=== PATIENT | male | born 1945 | race Caucasian/White ===

== ENCOUNTER 2017-10-09 17:30 | Inpatient (IN) | payer OTHER ==
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
[2017-10-09] MEDS ORDERED: SODIUM CHLORIDE 1,000 ML IV STA (18:35)
[2017-10-09 18:59] LABS: PH,URINE 5.5 (4.5-8); URINE APPEARANCE Clear; URINE BILIRUBIN Negative (NEGATIVE); URINE GLUCOSE (UA) 1+ (NEGATIVE); URINE KETONE 1+ (NEGATIVE); URINE NITRITE Positive (NEGATIVE); URINE UROBILINOGEN 0.2 (0.2-1.0)
[2017-10-09 19:00] LABS: URINE COLOR YELLOW; URINE LEUK ESTERASE 2+ (NEGATIVE); URINE PROTEIN 2+ (NEGATIVE)
[2017-10-09 19:03] LABS: BASO % 0.8 % (0-2.0); EOS % 0.3 % (0-4.5); HEMATOCRIT 35.4 % (35.4-49); HEMOGLOBIN 12.1 GM/dl (11.7-16.9); LYMPH % 9.5 % (8-40); MCH 30.3 pg (25.7-33.7); MCHC 34.2 g/dl (32.0-35.9); MEAN CELL VOLUME 88.6 fl (80-96); MEAN PLT VOLUME 9.9 fl (7.5-11.1); MONO % 13.5 % (3.8-10.2); NEUT % 75.9 % (42.8-82.8); PLATELET COUNT 149 K/MM3 (134-434); RDW 12.8 % (11.9-15.9); WHITE BLOOD COUNT 8.1 K/mm3 (4.0-10.8)
[2017-10-09 19:16] LABS: ALBUMIN 3.5 g/dl (3.5-5.0); ALK PHOS 70 U/L (32-92); ANION GAP 9 (8-16); BILIRUBIN,TOTAL 0.8 mg/dl (0.2-1.0); BLOOD UREA NITROGEN 26 mg/dl (7-18); CHLORIDE 99 mmol/L (98-107); CO2 23 mmol/L (22-28); CREATININE 1.2 mg/dl (0.6-1.3); GLUCOSE,RANDOM 247 mg/dl (74-106); POTASSIUM 4.2 mmol/L (3.5-5.1); SGOT/AST 17 U/L (10-42); SGPT/ALT 14 U/L (10-40); SODIUM 131 mmol/L (136-145)
[2017-10-09 19:59] LABS: URINE WBC MANY (0-2)
[2017-10-09 20:00] LABS: URINE BACTERIA MANY /hpf (NEGATIVE)
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
[2017-10-09] MEDS ORDERED: ACETAMINOPHEN 325 MG TABLET (FP) PO PRN (21:41)
[2017-10-09] MEDS: SODIUM CHLORIDE 1,000 ML IV SCH (21:52)
[2017-10-09] MEDS ORDERED: INSULIN SLIDING SCALE (NOVOLOG) 1 VIAL SQ SCH (22:00)
[2017-10-09] MEDS ORDERED: DOCUSATE SODIUM 100 MG CAPSULE (FP) PO ONE (22:41)
[2017-10-09] MEDS ORDERED: HEMOQUE TEST 1 EACH EACH ONE (22:41)
[2017-10-09] MEDS: INSULIN SLIDING SCALE (NOVOLOG) 1 VIAL SQ SCH (22:46)
[2017-10-09] MEDS ORDERED: INSULIN REGULAR HUMAN 100 UNITS/ML *VIAL ONE (22:50)
[2017-10-10] MEDS ORDERED: INSULIN SLIDING SCALE (NOVOLOG) 1 VIAL SQ SCH (07:00)
[2017-10-10 07:16] LABS: BASO % 0.7 % (0-2.0)
[2017-10-10 07:25] LABS: EOS % 0.7 % (0-4.5); HEMATOCRIT 31.9 % (35.4-49); HEMOGLOBIN 10.8 GM/dl (11.7-16.9); LYMPH % 10.7 % (8-40); MCH 30.4 pg (25.7-33.7); MEAN CELL VOLUME 89.3 fl (80-96); MONO % 10.7 % (3.8-10.2); NEUT % 77.2 % (42.8-82.8); RBC 3.57 M/mm3 (4.00-5.60); WHITE BLOOD COUNT 7.3 K/mm3 (4.0-10.8)
[2017-10-10 07:30] LABS: INR 1.31 (0.82-1.09); PROTHROMBIN TIME (PATIENT) 14.6 SEC (10.2-13.0)
[2017-10-10 07:42] LABS: ALBUMIN 2.9 g/dl (3.5-5.0); ALK PHOS 66 U/L (32-92); ANION GAP 9 (8-16); BILIRUBIN,TOTAL 1.1 mg/dl (0.2-1.0); BLOOD UREA NITROGEN 19 mg/dl (7-18); CALCIUM 8.1 mg/dl (8.4-10.2); CHLORIDE 101 mmol/L (98-107); CO2 22 mmol/L (22-28); MAGNESIUM 1.3 mg/dL (1.8-2.4); PHOSPHOROUS 2.9 mg/dl (2.5-4.6); POTASSIUM 4.9 mmol/L (3.5-5.1); SGOT/AST 21 U/L (10-42); SGPT/ALT 15 U/L (10-40); SODIUM 132 mmol/L (136-145); TOT PROT 5.9 g/dl (6.4-8.3)
[2017-10-10 07:45] LABS: GLUCOSE,RANDOM 320 mg/dl (74-106)
[2017-10-10] MEDS: INSULIN SLIDING SCALE (NOVOLOG) 1 VIAL SQ SCH ×4 (07:53→21:19)
[2017-10-10] MEDS ORDERED: INSULIN (NOVOLOG) ASPART 100 UNITS/ML 10ML VIAL ONE (08:02)
--- NOTE | 2017-10-10 08:57 | PN ---
Physical Exam: SUBJECTIVE: Patient seen and examined,denies any chest pain or shortness of breath. OBJECTIVE: Vital Signs Period Temp Pulse Resp BP Sys/Cadet Pulse Ox Last 24 Hr 98.7 F-101.7 F 75-86 16-20 132-148/63-78 96-97 GENERAL: The patient is awake, alert, and fully oriented, in no acute distress. HEAD: Normal with no signs of trauma. EYES: PERRL, extraocular movements intact, sclera anicteric, conjunctiva clear. No ptosis. ENT: Ears normal, nares patent, oropharynx clear without exudates, moist mucous membranes. NECK: Trachea midline, full range of motion, supple. LUNGS: Breath sounds equal, clear to auscultation bilaterally, no wheezes, no crackles, no accessory muscle use. HEART: Regular rate and rhythm, S1, S2 without murmur, rub or gallop. ABDOMEN: Soft, nontender, nondistended, normoactive bowel sounds, no guarding, no rebound, no hepatosplenomegaly, no masses. :rollins cloudy colored urine EXTREMITIES: 2+ pulses, warm, well-perfused, no edema. NEUROLOGICAL: Cranial nerves II through XII grossly intact. Normal speech, gait not observed. PSYCH: Normal mood, normal affect. SKIN: Warm, dry, normal turgor, no rashes or lesions noted Laboratory Results - last 24 hr 10/09/17 10/09/17 10/09/17 18:53 18:53 18:53 WBC 8.1 RBC 4.00 Hgb 12.1 Hct 35.4 MCV 88.6 MCH 30.3 MCHC 34.2 RDW 12.8 Plt Count 149 MPV 9.9 Neutrophils % 75.9 Lymphocytes % 9.5 Monocytes % 13.5 H Eosinophils % 0.3 Basophils % 0.8 PT with INR INR Sodium 131 L Potassium 4.2 Chloride 99 Carbon Dioxide 23 Anion Gap 9 BUN 26 H Creatinine 1.2 Creat Clearance w eGFR 59.51 POC Glucometer Random Glucose 247 H Lactic Acid Calcium 9.0 Phosphorus Magnesium Total Bilirubin 0.8 AST 17 ALT 14 Alkaline Phosphatase 70 Creatine Kinase 71 Troponin I < 0.03 Total Protein 7.0 Albumin 3.5 Urine Color Urine Appearance Urine pH Ur Specific [place] Urine Protein Urine Glucose (UA) Urine Ketones Urine Blood Urine Nitrite Urine Bilirubin Urine Urobilinogen Ur Leukocyte Esterase Urine RBC Urine WBC Urine Bacteria 10/09/17 10/09/17 10/09/17 18:53 18:53 22:45 WBC RBC Hgb Hct MCV MCH MCHC RDW Plt Count MPV Neutrophils % Lymphocytes % Monocytes % Eosinophils % Basophils % PT with INR INR Sodium Potassium Chloride Carbon Dioxide Anion Gap BUN Creatinine Creat Clearance w eGFR POC Glucometer [phone] Random Glucose Lactic Acid 1.3 Calcium Phosphorus Magnesium Total Bilirubin AST ALT Alkaline Phosphatase Creatine Kinase Troponin I Total Protein Albumin Urine Color Yellow Urine Appearance Clear Urine pH 5.5 Ur Specific [place] 1.020 Urine Protein 2+ H Urine Glucose (UA) 1+ H Urine Ketones 1+ H Urine Blood 1+ H Urine Nitrite Positive Urine Bilirubin Negative Urine Urobilinogen 0.2 Ur Leukocyte Esterase 2+ H Urine RBC 5-10 Urine WBC Many Urine Bacteria Many 10/10/17 10/10/17 10/10/17 06:00 06:00 06:00 WBC 7.3 RBC 3.57 L Hgb 10.8 L D Hct 31.9 L MCV 89.3 MCH 30.4 MCHC 34.0 RDW 13.0 Plt Count MPV Neutrophils % 77.2 Lymphocytes % 10.7 Monocytes % 10.7 H Eosinophils % 0.7 D Basophils % 0.7 PT with INR 14.6 H INR 1.31 H Sodium 132 L Potassium 4.9 Chloride 101 Carbon Dioxide 22 Anion Gap 9 BUN 19 H D Creatinine 1.0 Creat Clearance w eGFR > 60 POC Glucometer Random Glucose 320 H* D Lactic Acid Calcium 8.1 L Phosphorus 2.9 Magnesium 1.3 L Total Bilirubin 1.1 H D AST 21 D ALT 15 Alkaline Phosphatase 66 Creatine Kinase Troponin I Total Protein 5.9 L Albumin 2.9 L Urine Color Urine Appearance Urine pH Ur Specific [place] Urine Protein Urine Glucose (UA) Urine Ketones Urine Blood Urine Nitrite Urine Bilirubin Urine Urobilinogen Ur Leukocyte Esterase Urine RBC Urine WBC Urine Bacteria 10/10/17 06:00 WBC RBC Hgb Hct MCV MCH MCHC RDW Plt Count MPV Neutrophils % Lymphocytes % Monocytes % Eosinophils % Basophils % PT with INR INR Sodium Potassium Chloride Carbon Dioxide Anion Gap BUN Creatinine Creat Clearance w eGFR POC Glucometer Random Glucose Lactic Acid Calcium Phosphorus Magnesium Total Bilirubin AST ALT Alkaline Phosphatase Creatine Kinase Troponin I < 0.03 Total Protein Albumin Urine Color Urine Appearance Urine pH Ur Specific [place] Urine Protein Urine Glucose (UA) Urine Ketones Urine Blood Urine Nitrite Urine Bilirubin Urine Urobilinogen Ur Leukocyte Esterase Urine RBC Urine WBC Urine Bacteria Active Medications Generic Name Dose Route Start Last Admin Trade Name Nathan PRN Reason Stop Dose Admin Acetaminophen 650 mg 10/09/17 21:41 Tylenol - PO Q4H PRN PAIN LEVEL 1-5 Aspirin 81 mg 10/10/17 10:00 Ecotrin - PO DAILY [facility] Clopidogrel Bisulfate 75 mg 10/10/17 10:00 Plavix - PO DAILY [facility] Docusate Sodium 100 mg 10/09/17 22:00 Colace - PO BID ENOC Sodium Chloride 1,000 mls @ 100 mls/hr 10/09/17 21:45 10/09/17 21:52 Normal Saline - IV 100 mls/hr ASDIR ENOC Administration Magnesium Sulfate 2 gm/ Sodium 104 mls @ 100 mls/hr 10/10/17 08:56 Chloride IVPB 10/10/17 09:58 ONCE ONE Insulin Aspart 1 vial 10/10/17 07:00 10/10/17 07:53 Novolog Vial Sliding Scale - SQ 8 units TIDAC [facility] Administration Protocol Insulin Aspart 1 vial 10/09/17 22:15 10/09/17 22:46 Novolog Vial Sliding Scale - SQ 4 units HS [facility] Administration Protocol Metoprolol Succinate 25 mg 10/10/17 10:00 Toprol Xl - PO DAILY [facility] Midodrine 2.5 mg 10/10/17 10:00 Proamatine - PO BID-MID [facility] patient is 72 y/o male, admitted from the ED for uti and metabolic encephalopathy ASSESSMENT/PLAN: 1) uti - pending culture, pending CT of abd/pelvis - continue rocephin urinary retention - continue rollins 2) neuro metabolic encephalopathy secondary to uti - fall precautions 3) cardiovascular afib - continous cardiac monitoiring, pt in nsr with pac's - no AC as per patient - implantable loop recorder noted on exam and as per patient, will contact [employer] for interrogation orthostatic hypotension - continue midodrine, allow for permissive hypertension 4) endo iddm - off insulin pump, fingersticks achs with regular insulin sliding scale - pending hgb a1c f/e/n replete magnesium low sodium diet ppx - oob - pt eval - scd dispo: pt requires inpatient admission Visit type - Emergency Visit Emergency Visit: Yes ED Registration Date: 10/09/17 Care time: The patient presented to the Emergency Department on the above date and was hospitalized for further evaluation of their emergent condition. - New Patient This patient is new to me today: No - Critical Care Critical Care patient: No - Discharge Referral Referred to [facility] No
[2017-10-10] MEDS ORDERED: MAGNESIUM SULF 50% (8.12 MEQ/2 ML-1 GM VIAL) ONE (09:14)
[2017-10-10] MEDS ORDERED: MAGNESIUM SULFATE IN WATER 2 GM/50 ML IVPB IVPB ONE (09:15)
[2017-10-10] MEDS: metoPROLOL SUCCINATE 25 MG TAB.SR.24H (FP) PO SCH (10:24)
[2017-10-10] MEDS: CLOPIDOGREL BISULFATE 75 MG TABLET (FP) PO SCH (10:24)
[2017-10-10] MEDS: MIDODRINE HCL 2.5 MG TABLET PO SCH ×2 (10:25→17:45)
[2017-10-10] MEDS: DOCUSATE SODIUM 100 MG CAPSULE (FP) PO SCH ×2 (10:25→21:19)
[2017-10-10] MEDS: ASPIRIN COATED 81 MG TABLET.EC PO SCH (10:25)
[2017-10-10 10:48] LABS: MEAN PLT VOLUME 11.1 fl (7.5-11.1); PLATELET COUNT 133 K/MM3 (134-434)
[2017-10-10 12:15] VITALS: BMI 24.0
--- NOTE | 2017-10-10 12:59 | EKG ---
Test Reason : Blood Pressure : / mmHG Vent. Rate : 077 BPM Atrial Rate : 077 BPM P-R Int : 180 ms QRS Dur : 080 ms QT Int : 384 ms P-R-T Axes : 065 021 054 degrees QTc Int : 434 ms SINUS RHYTHM WITH PREMATURE ATRIAL COMPLEXES NONSPECIFIC ST ABNORMALITY ABNORMAL ECG NO PREVIOUS ECGS AVAILABLE Confirmed by FERNANDEZ MONTEMAYOR, JUSTIN ([id number]) on 10/10/2017 12:59:38 PM Referred By: MD CHRISTOPHER Confirmed By:JUSTIN PRESLEY MD
[2017-10-10] MEDS ORDERED: CEFTRIAXONE 2 GM in DEXTROSE 5%-WATER - 100 ML IVPB ONE (15:00)
[2017-10-10] MEDS: SODIUM CHLORIDE 1,000 ML IV SCH (21:22)
[2017-10-10] MEDS: INSULIN (LEVEMIR) 100 UNITS/ML UNITS SQ SCH (22:12)
[2017-10-10] MEDS: ATORVASTATIN CA 40 MG TABLET (FP) PO SCH (22:14)
[2017-10-11] MEDS: INSULIN SLIDING SCALE (NOVOLOG) 1 VIAL SQ SCH ×4 (06:49→21:33)
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
[2017-10-11] MEDS: DOCUSATE SODIUM 100 MG CAPSULE (FP) PO SCH ×3 (10:03→21:33)
[2017-10-11] MEDS: CLOPIDOGREL BISULFATE 75 MG TABLET (FP) PO SCH (10:04)
[2017-10-11] MEDS: MIDODRINE HCL 2.5 MG TABLET PO SCH ×2 (10:04→17:21)
[2017-10-11] MEDS: metoPROLOL SUCCINATE 25 MG TAB.SR.24H (FP) PO SCH (10:04)
[2017-10-11] MEDS: ASPIRIN COATED 81 MG TABLET.EC PO SCH (10:04)
[2017-10-11] MEDS: INSULIN (LEVEMIR) 100 UNITS/ML UNITS SQ SCH ×2 (10:04→21:36)
[2017-10-11 13:30] LABS: BASO % 0.6 % (0-2.0); HEMATOCRIT 33.3 % (35.4-49); HEMOGLOBIN 11.3 GM/dl (11.7-16.9); LYMPH % 14.3 % (8-40); MCH 30.5 pg (25.7-33.7); MEAN CELL VOLUME 89.9 fl (80-96); MONO % 13.3 % (3.8-10.2); NEUT % 68.8 % (42.8-82.8); PLATELET COUNT 131 K/MM3 (134-434); RDW 12.6 % (11.9-15.9); WHITE BLOOD COUNT 5.1 K/mm3 (4.0-10.8)
[2017-10-11 13:40] LABS: ALBUMIN 2.8 g/dl (3.5-5.0); ALK PHOS 68 U/L (32-92); ANION GAP 6 (8-16); BILIRUBIN,TOTAL 0.6 mg/dl (0.2-1.0); BLOOD UREA NITROGEN 16 mg/dl (7-18); CALCIUM 8.2 mg/dl (8.4-10.2); CHLORIDE 103 mmol/L (98-107); CO2 24 mmol/L (22-28); CREATININE 0.9 mg/dl (0.6-1.3); GLUCOSE,RANDOM 297 mg/dl (74-106); MAGNESIUM 1.5 mg/dL (1.8-2.4); PHOSPHOROUS 2.6 mg/dl (2.5-4.6); SGOT/AST 33 U/L (10-42); SGPT/ALT 26 U/L (10-40); SODIUM 133 mmol/L (136-145); TOT PROT 6.1 g/dl (6.4-8.3)
--- NOTE | 2017-10-11 13:42 | PN ---
Physical Exam: SUBJECTIVE: Patient seen and examined, patient is sitting in bedside chair denies any chest pain or shortness of breath. OBJECTIVE: Patient is a 72 y/o male with a past medical history of afib, IDDM, CAD (s/p cabg), and bph. patient was admitted from the emergency department for metabolic encephalopathy and uti Vital Signs Period Temp Pulse Resp BP Sys/Cadet Pulse Ox Last 24 Hr 98.6 F-99.7 F 67-73 18-18 103-133/40-68 95-96 GENERAL: The patient is awake, alert, and fully oriented, in no acute distress. HEAD: Normal with no signs of trauma. EYES: PERRL, extraocular movements intact, sclera anicteric, conjunctiva clear. No ptosis. ENT: Ears normal, nares patent, oropharynx clear without exudates, moist mucous membranes. NECK: Trachea midline, full range of motion, supple. LUNGS: Breath sounds equal, clear to auscultation bilaterally, no wheezes, no crackles, no accessory muscle use. HEART: Regular rate and rhythm, S1, S2 without murmur, rub or gallop. ABDOMEN: Soft, nontender, nondistended, normoactive bowel sounds, no guarding, no rebound, no hepatosplenomegaly, no masses. :rollins cloudy colored urine EXTREMITIES: 2+ pulses, warm, well-perfused, no edema. NEUROLOGICAL: Cranial nerves II through XII grossly intact. Normal speech, gait not observed. PSYCH: Normal mood, normal affect. SKIN: Warm, dry, normal turgor, no rashes or lesions noted Laboratory Results - last 24 hr 10/10/17 10/10/17 10/10/17 06:00 16:40 21:05 POC Glucometer 429 310 Hemoglobin A1c % 10.2 H Prostate Specific Ag 10/10/17 10/11/17 10/11/17 Unknown 06:23 12:09 POC Glucometer 156 270 Hemoglobin A1c % Prostate Specific Ag 2.80 Active Medications Generic Name Dose Route Start Last Admin Trade Name Freq PRN Reason Stop Dose Admin Acetaminophen 650 mg 10/09/17 21:41 Tylenol - PO Q4H PRN PAIN LEVEL 1-5 Aspirin 81 mg 10/10/17 10:00 10/11/17 10:04 Ecotrin - PO 81 mg DAILY ENOC Administration Atorvastatin Calcium 40 mg 10/10/17 22:00 10/10/17 22:14 Lipitor - PO 40 mg HS ENOC Administration Clopidogrel Bisulfate 75 mg 10/10/17 10:00 10/11/17 10:04 Plavix - PO 75 mg DAILY ENOC Administration Docusate Sodium 100 mg 10/09/17 22:00 10/11/17 10:04 Colace - PO 100 mg BID ENOC Administration Sodium Chloride 1,000 mls @ 100 mls/hr 10/09/17 21:45 10/10/17 21:22 Normal Saline - IV 100 mls/hr ASDIR ENOC Administration Insulin Aspart 1 vial 10/10/17 07:00 10/11/17 12:13 Novolog Vial Sliding Scale - SQ 6 units TIDAC [facility] Administration Protocol Insulin Aspart 1 vial 10/09/17 22:15 10/10/17 21:19 Novolog Vial Sliding Scale - SQ 8 units HS [facility] Administration Protocol Insulin Detemir 10 units 10/10/17 22:00 10/10/17 22:12 Levemir Vial SQ 10 units HS ENOC Administration Insulin Detemir 5 units 10/11/17 10:00 10/11/17 10:04 Levemir Vial SQ 5 units DAILY ENOC Administration Metoprolol Succinate 25 mg 10/10/17 10:00 10/11/17 10:04 Toprol Xl - PO 25 mg DAILY ENOC Administration Midodrine 2.5 mg 10/10/17 10:00 10/11/17 10:04 Proamatine - PO 2.5 mg BID-MID ENOC Administration Tamsulosin HCl 0.4 mg 10/11/17 13:38 Flomax - PO 10/11/17 13:39 ONCE ONE Tamsulosin HCl 0.4 mg 10/12/17 08:30 Flomax - PO DAILY@0830 [facility] Microbiology 10/09/17 19:25 Urine - Urine Clean Catch Urine Culture - Preliminary Lactose Fermenting Neg Bacilli 10/09/17 18:53 Blood - Peripheral Venous Blood Culture - Preliminary NO GROWTH OBTAINED AFTER 24 HOURS, INCUBATION TO CONTINUE FOR 4 DAYS. 10/09/17 18:53 Blood - Peripheral Venous Blood Culture - Preliminary NO GROWTH OBTAINED AFTER 24 HOURS, INCUBATION TO CONTINUE FOR [address] of abd/pelvis with and w/o contrast: no urinary calculi, mass, lesions or obstructive uropathy, thickening and irregularity of urinary bladder, no evidence of occult malignancy as per Dr Tapia, radiology ct of lumbar spine w/o contrast: no compression fracture, multilievel disc bulge , mild degenerative spinal canal stenosis at l4-l5 w/o impingement chest xray:clear lung bases. echo lv normal, trace mr ASSESSMENT/PLAN: 1) uti - no leukocytosis noted, patient is afebrile, prelim culture + lactose fermenting continue rocephin until urine culture is finalized urinary retention - voiding trial, d/c rollins 2) neuro metabolic encephalopathy secondary to uti - patient is at baseline - fall precautions 3) cardiovascular afib - continous cardiac monitoiring, pt in nsr with pac's - no AC as per patient has been taking plavix and asa daily - implantable loop recorder interograted by [employer] no events noted. orthostatic hypotension - continue midodrine, allow for permissive hypertension 4) endo iddm - off insulin pump, fingersticks achs with regular insulin sliding scale - hgb a1c elevated f/e/n replete magnesium low sodium diet ppx - oob - pt eval - scd dispo: pt requires inpatient admission Visit type - Emergency Visit Emergency Visit: Yes ED Registration Date: 10/09/17 Care time: The patient presented to the Emergency Department on the above date and was hospitalized for further evaluation of their emergent condition. - New Patient This patient is new to me today: No - Critical Care Critical Care patient: No - Discharge Referral Referred to [facility] No
[2017-10-11] MEDS ORDERED: TAMSULOSIN HCL 0.4 MG CAP.ER.24H (FP) PO ONE (14:15)
[2017-10-11] MEDS ORDERED: MAGNESIUM SULFATE IN WATER 2 GM/50 ML IVPB IVPB ONE (14:15)
[2017-10-11] MEDS: ATORVASTATIN CA 40 MG TABLET (FP) PO SCH (21:33)
[2017-10-11] MEDS: SODIUM CHLORIDE 1,000 ML IV SCH (21:36)
[2017-10-12] MEDS ORDERED: CEFTRIAXONE 500 MG in DEXTROSE 5%-WATER - 50 ML IVPB ONE (02:11)
[2017-10-12] MEDS: INSULIN SLIDING SCALE (NOVOLOG) 1 VIAL SQ SCH ×2 (06:39→11:46)
[2017-10-12 08:11] LABS: BASO % 1.1 % (0-2.0); EOS % 5.2 % (0-4.5); HEMATOCRIT 35.5 % (35.4-49); HEMOGLOBIN 12.3 GM/dl (11.7-16.9); LYMPH % 18.3 % (8-40); MCHC 34.5 g/dl (32.0-35.9); MEAN CELL VOLUME 89.9 fl (80-96); MEAN PLT VOLUME 10.1 fl (7.5-11.1); MONO % 17.6 % (3.8-10.2); NEUT % 57.8 % (42.8-82.8); PLATELET COUNT 120 K/MM3 (134-434); RBC 3.95 M/mm3 (4.00-5.60); RDW 12.6 % (11.9-15.9); WHITE BLOOD COUNT 4.7 K/mm3 (4.0-10.8)
[2017-10-12 08:20] LABS: ANION GAP 8 (8-16); BLOOD UREA NITROGEN 13 mg/dl (7-18); CALCIUM 8.5 mg/dl (8.4-10.2); CHLORIDE 101 mmol/L (98-107); CO2 27 mmol/L (22-28); CREATININE 0.7 mg/dl (0.6-1.3); GLUCOSE,RANDOM 148 mg/dl (74-106); MAGNESIUM 1.6 mg/dL (1.8-2.4); POTASSIUM 3.7 mmol/L (3.5-5.1); SODIUM 136 mmol/L (136-145)
[2017-10-12] MEDS ORDERED: TAMSULOSIN HCL 0.4 MG CAP.ER.24H (FP) PO SCH (08:30)
[2017-10-12] MEDS: metoPROLOL SUCCINATE 25 MG TAB.SR.24H (FP) PO SCH (09:43)
[2017-10-12] MEDS: ASPIRIN COATED 81 MG TABLET.EC PO SCH (09:43)
[2017-10-12] MEDS: CLOPIDOGREL BISULFATE 75 MG TABLET (FP) PO SCH (09:43)
[2017-10-12] MEDS: DOCUSATE SODIUM 100 MG CAPSULE (FP) PO SCH (09:43)
[2017-10-12] MEDS: MIDODRINE HCL 2.5 MG TABLET PO SCH (09:43)
[2017-10-12] MEDS: INSULIN (LEVEMIR) 100 UNITS/ML UNITS SQ SCH (09:43)
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
[2017-10-12] MEDS ORDERED: ENOXAPARIN NA (PORCINE) 40 MG/0.4 ML DISP.SYRIN SQ SCH (11:00)
[2017-10-12] MEDS ORDERED: MAGNESIUM SULF 50% (8.12 MEQ/2 ML-1 GM VIAL) IVPB ONE (11:22)
[2017-10-12 13:37] VITALS: BP 140/56; PULSE 65; TEMP 98.2
[2017-10-13] MEDS ORDERED: CEFTRIAXONE 500 MG in DEXTROSE 5%-WATER - 50 ML IVPB SCH (10:00)
== END 2017-10-12 15:00 | disposition home or self-care (01) | DRG 689 ==
LOC: FER 17:30 → FM/S 21:41 → UNDOADMIN 10-10 07:49 → FM/S 10-10 07:49
PROVIDERS: ADMIT Internal Medicine; ATTEND Nurse Practitioner Acute Care
DX: N39.0 Urinary tract infection, site not specified (principal); G93.41 Metabolic encephalopathy; R41.82 Altered mental status, unspecified; I25.10 Atherosclerotic heart disease of native coronary artery without angina pectoris; Z95.1 Presence of aortocoronary bypass graft; Z98.61 Coronary angioplasty status; N40.0 Benign prostatic hyperplasia without lower urinary tract symptoms; R55 Syncope and collapse; I48.0 Paroxysmal atrial fibrillation; R33.9 Retention of urine, unspecified
CPT/HCPCS: 36415; 70450-TC; 71045-TC-FY; 72131-TC; 74178-TC; 80048; 80053; 81003; 81015; 82550; 82962; 83036; 83605; 83735; 84100; 84153; 84484; 85025; 85610; 87040; 87086; 87186; 93005; 93306-TC; 97116-GP; 97161-GP; 99285-25; J7030